=== PATIENT | female | born 1995 | race Two or more races ===

== ENCOUNTER 2018-03-22 20:28 | Emergency (ER) | payer MEDICAID ==
[~2018-03-22] VITALS: Ht 152.4 cm; Wt 40.4 kg
[2018-03-22] MEDS ORDERED: PREN1TAB PO (20:42)
--- NOTE | 2018-03-22 20:42 | NUR ---
DR JUAN SOLORZANO MD AT BEDSIDE FOR MSE.
[2018-03-22] MEDS ORDERED: FAMOTIDINE 20 MG TABLET ONE (20:58)
--- NOTE | 2018-03-22 20:59 | NUR ---
Patient discharged to home in stable conditon. Written and verbal after care instructions given. Patient verbalizes understanding of instructions. Pt denies abd pain, n/v, cramps, diarrhea. no distress noted. Pt took all personal belongings.
[2018-03-22] MEDS ORDERED: SUCRALFATE 1 G TABLET PO SCH (21:00)
[2018-03-22] MEDS ORDERED: FAMOTIDINE 20 MG TABLET PO ONE (21:00)
[2018-03-22 21:12] VITALS: BP 125/88
== END 2018-03-22 21:13 | disposition home or self-care (01) ==
LOC: ER 20:31
DX: O99.611 Diseases of the digestive system complicating pregnancy, first trimester (principal); K29.70 Gastritis, unspecified, without bleeding; K21.9 Gastro-esophageal reflux disease without esophagitis; Z3A.08 8 weeks gestation of pregnancy
CPT/HCPCS: A4663